=== PATIENT | male | born 1955 | race Caucasian/White ===

== ENCOUNTER 2018-01-12 10:14 | Emergency (ER) | payer BC ==
--- NOTE | 2018-01-12 12:29 | ED Physician Documentation ---
History of Present Illness - Stated complaint Stated Complaint: LEFT ARMPIT PX - Chief complaint Chief Complaint: Wound - Additonal information Additional information: hx from pt 62 male visiting locally hx enlarged noeds has L [place]illary b[place] - benign recently txed for asthma exac in another state now to ER here to large ST swelling under scar from prior biopsy L ant chest near axillae feels generally run down no fever his cough breathing is better no abd pain no ext injury Review of Systems Constitutional: reports: Fatigue. denies: Fever Cardiac: denies: Chest pain / pressure Respiratory: denies: Dyspnea, Cough Skin: reports: Other (STS). denies: Rash Endocrine: denies: Easy bruising / bleeding Immunocompromised: denies: Immunocompromised PD PAST MEDICAL HISTORY - Past Medical History Past Medical History: Yes Cardiovascular: Hypertension Respiratory: Asthma Psych: Depression, Anxiety - Past Surgical History Past Surgical History: Yes General: Cholecystectomy Ortho: Rotator cuff repair - Present Medications Home Medications: Ambulatory Orders Medication Instructions Recorded Confirmed Clindamycin [Cleocin] 300 mg PO Q6H 7 Days capsule 01/12/18 Lisinopril [Zestril] 1 tab PO DAILY 01/12/18 01/12/18 Mometasone/Formoterol [Dulera 200 1 inh PO BID 01/12/18 Mcg/5 Mcg Inhaler] Sertraline [Zoloft] 1 tab PO PRN 01/12/18 predniSONE [Prednisone] 1 tab PO DAILY 01/12/18 01/12/18 - Allergies Allergies/Adverse Reactions: Allergies Allergy/AdvReac Type Severity Reaction Status Date / Time Contrast dye AdvReac Unknown Uncoded 01/12/18 10:50 - Social History Does the pt smoke?: No Smoking Status: Never smoker Does the pt drink ETOH?: No Does the pt have substance abuse?: No - Immunizations Immunizations are current?: Yes PD ED PE NORMAL - Vitals Vital signs reviewed: Yes - Neck Neck: Supple, no meningeal sign - Cardiac Cardiac: RRR - Respiratory Respiratory: No respiratory distress, Clear bilaterally - Abdomen Abdomen: Soft, Non tender - Neuro Neuro: Alert and oriented X 3 - Free text exam Free text exam: few ant cervical possible L supraclavicular nodes, large STS mobile swelling ant upper lateral L chest under prior bx scar near axillae feels mobile and sup to pec mm, no erythema warmth drainage, no hand arm infection, no chest wall infection Results - Vitals Vitals: Vital Signs - 24 hr 01/12/18 01/12/18 01/12/18 10:35 13:16 16:11 Temperature 36.3 C L Heart Rate 98 85 98 Respiratory 16 16 18 Rate Blood Pressure 133/95 H 122/75 130/72 O2 Saturation 97 97 98 Oxygen O2 Source Room air - Labs Labs: Microbiology 01/12/18 15:46 Wound Culture - Preliminary Abscess Laboratory Tests 01/12/18 01/12/18 13:18 13:18 WBC 9.1 RBC 5.36 Hgb 14.8 Hct 45.3 MCV 84.5 MCH 27.7 MCHC 32.8 RDW 13.6 Plt Count 127 L MPV 8.8 Neut # (Auto) 6.6 Lymph # (Auto) 1.7 [place] # (Auto) 0.8 Eos # (Auto) 0.1 Baso # (Auto) 0.0 Absolute Nucleated RBC 0.00 Nucleated RBC % 0.0 Sodium 135 Potassium 4.0 Chloride 99 L Carbon Dioxide 28 Anion Gap 8.0 BUN 16 Creatinine 0.9 Estimated GFR (MDRD) 86 L Glucose 349 H Calcium 9.3 - Rads (name of study) CXR Radiology: See rad report (normal) ST sono Radiology: See rad report (5.5 X 3.5 X 3.1 cm lobulated avascular complex fluid collection vs solid mass - ddx abscess, seroma, meatoma, abn node) Procedures - Abscess I&D (location) L chest wall Preparation: Confirmed with ultrasound, Lidocaine 1%, With epi Incision: Incised with scalpel, Needle aspiration, Purulent drainage, Loculations broken, Irrigated, Packed, Culture obtained Other: Pt tolerated well, Dressing applied, Antibiotic prescribed PD MEDICAL DECISION MAKING - ED course ED course: CXR ne sono did not help narrow the ddx so incised the swelling, it was quite deep but yielded approx 40 ml of pus, packed and dressed, ab rx pt had no SOA and clear lungs after pt states elev blood sugar not new, being monitored, he is on steroids and had OJ and cherries earlier, will not start metformin ect today but advised pt of level - Sepsis Event Vital Signs: Vital Signs - 24 hr 01/12/18 01/12/1818 10:35 13:16 16:11 Temperature 36.3 C L Heart Rate 98 85 98 Respiratory 16 16 18 Rate Blood Pressure 133/95 H 122/75 130/72 O2 Saturation 97 97 98 Oxygen O2 Source Room air Departure - Departure Disposition: 01 Home, Self Care Clinical Impression: Abscess Condition: Good Instructions: ED Abscess IandD Prescriptions: Clindamycin [Cleocin] 300 mg PO Q6H 7 Days capsule Comments: The swelling was due to a very large and very deep abscess under your prior surgical scar We drained as much of the pus out as possible, packed the cavity with medicated gauze and put you on antibiotics to clear the infection. The antibiotic I picked is clindamycin - I picked that because it does not interact with your other medications. Please take a probiotic every day to prevent diarrhea You need to come back and see me Monday morning for a recheck and to change the dressing and packing If you are worse between now and Monday come back to the ER sooner Also your blood sugar was high today which may be due to the steroids you are one - but you may have diabetes and will need to follow up with your PMD after finishing the steroids Discharge Date/Time: 01/12/18 16:20
[2018-01-12 13:27] LABS: BASOPHILS % (AUTO) 0.4 %; EOSINOPHILS # (AUTO) 0.1 10^3/uL (0.0-0.7); EOSINOPHILS % (AUTO) 0.8 %; HGB - HEMOGLOBIN 14.8 g/dL (14.0-18.0); LYMPHOCYTES # (AUTO) 1.7 10^3/uL (1.5-3.5); LYMPHOCYTES % (AUTO) 18.7 %; MEAN CORPUSCULAR HEMOGLOBIN 27.7 pg (27.0-31.0); MEAN CORPUSCULAR HGB CONC 32.8 g/dL (32.0-36.0); MEAN CORPUSCULAR VOLUME 84.5 fL (80.0-94.0); MEAN PLATELET VOLUME 8.8 fL (7.4-11.4); MONOCYTES # (AUTO) 0.8 10^3/uL (0.0-1.0); MONOCYTES % (AUTO) 8.3 %; NEUTROPHILS # (AUTO) 6.6 10^3/uL (1.5-6.6); NEUTROPHILS % (AUTO) 71.8 %; PLT - PLATELET COUNT 127 10^3/uL (130-450); RED BLOOD COUNT 5.36 10^6/uL (4.70-6.10); RED CELL DISTRIBUTION WIDTH 13.6 % (12.0-15.0); WHITE BLOOD COUNT 9.1 x10^3/uL (4.8-10.8)
[2018-01-12 13:35] LABS: CALCIUM 9.3 mg/dL (8.5-10.3); CREATININE 0.9 mg/dL (0.6-1.2)
--- NOTE | 2018-01-12 15:01 | XRAY Report ---
Procedure Date: 01/12/2018 Accession Number: [id number] / [id number] Procedure: XR - Chest 1 View X-Ray CPT Code: 18899 FULL RESULT: EXAM: CHEST RADIOGRAPHY EXAM DATE: 01/12/2018 02:42 PM. CLINICAL HISTORY: Left axillary swelling and tenderness COMPARISON: None. TECHNIQUE: 1 view. FINDINGS: Lungs/Pleura: No focal opacities evident. No pleural effusion. No pneumothorax. Mediastinum: Within exam limitations, the cardiomediastinal contour is normal. Other: No acute skeletal abnormalities are appreciated. IMPRESSION: Grossly clear lungs. RADIA
--- NOTE | 2018-01-12 15:26 | Ultrasound Report ---
Procedure Date: 01/12/2018 Accession Number: [id number] / [id number] Procedure: US - Chest CPT Code: FULL RESULT: EXAM: Chest ultrasound DATE: 01/12/2018 2:40 PM CLINICAL HISTORY: large ST swelling anterior lateral left chest near the axilla at site of scar from prior lymph node excision. TECHNIQUE: Real time scanning by the product marketing manager with me present with saved static images reviewed. COMPARISON: None FINDINGS: Corresponding to the palpable abnormality is a 4.5 x 3.5 x 3.1 cm anechoic lobulated mass/collection with internal echoes without internal vascularity. There is increased through transmission. Minimal adjacent peripheral vascularity. No adjacent lymphadenopathy IMPRESSION: 4.5 x 3.5 x 3.1 cm lobulated avascular complex fluid collection versus solid mass left axilla. Consider abscess, seroma, hematoma, or abnormal lymph node.
[2018-01-12] MEDS ORDERED: CLINDAMYCIN 150 MG CAPSULE PO STA (16:01)
[2018-01-12 16:12] VITALS: BP 130/72
== END 2018-01-12 16:20 | disposition home or self-care (01) ==
LOC: ED 10:14
DX: L02.412 Cutaneous abscess of left axilla (principal); I10 Essential (primary) hypertension; J45.909 Unspecified asthma, uncomplicated
CPT/HCPCS: 10060; 36415; 71045; 76604; 80048; 85025; 87070; 87205; 99283; A9270

== ENCOUNTER 2018-01-14 08:06 | Emergency (ER) | payer BC ==
[2018-01-14] MEDS ORDERED: oxyCOD/ACETAMIN 5 MG/325 MG TABLET PO STA (08:58)
--- NOTE | 2018-01-14 09:05 | ED Physician Documentation ---
History of Present Illness - Stated complaint Stated Complaint: WOUND CHECK - Chief complaint Chief Complaint: Wound - Additonal information Additional information: hx from pt 62 male seen by me 48 hr ago had a veryularge very deep abscess left upper laterla chest wall I and D placed on clinda back for packing change wound check wound culture shows gram + and gram - no ID or sensitivity yet Review of Systems Constitutional: denies: Fever Skin: reports: Other (abscess) PD PAST MEDICAL HISTORY - Past Medical History Past Medical History: Yes Cardiovascular: Hypertension Respiratory: Asthma Psych: Depression, Anxiety - Past Surgical History Past Surgical History: Yes General: Cholecystectomy Ortho: Rotator cuff repair - Present Medications Home Medications: Ambulatory Orders Medication Instructions Recorded Confirmed Clindamycin [Cleocin] 300 mg PO Q6H 7 Days capsule 01/12/18 Lisinopril [Zestril] 1 tab PO DAILY 01/12/18 01/12/18 Mometasone/Formoterol [Dulera 200 1 inh PO BID 01/12/18 Mcg/5 Mcg Inhaler] Sertraline [Zoloft] 1 tab PO PRN 01/12/18 predniSONE [Prednisone] 1 tab PO DAILY 01/12/18 01/12/18 Oxycodone HCl/Acetaminophen 1 each PO Q6HR PRN #6 tablet 01/14/18 [Percocet 5-325 mg Tablet] - Allergies Allergies/Adverse Reactions: Allergies Allergy/AdvReac Type Severity Reaction Status Date / Time Contrast dye AdvReac Unknown Uncoded 01/14/18 08:22 - Social History Does the pt smoke?: No Smoking Status: Never smoker Does the pt drink ETOH?: No Does the pt have substance abuse?: No - Immunizations Immunizations are current?: Yes - POLST Patient has POLST: No PD ED PE NORMAL - Vitals Vital signs reviewed: Yes - Derm Derm: Other (no surrounding erythema, less swollen, after packng removed scant discharge) Results - Vitals Vitals: Vital Signs - 24 hr 01/14/18 08:10 Temperature 36.2 C L Heart Rate 97 Respiratory 18 Rate Blood Pressure 127/90 H O2 Saturation 95 Oxygen O2 Source Room air PD MEDICAL DECISION MAKING - ED course ED course: old packing removed repacked pt ronny well will dc'he is tavelling and will need to having packing removed in 3 days confirmed he gave us an accurate phone for cx results - Sepsis Event Vital Signs: Vital Signs - 24 hr 01/14/18 08:10 Temperature 36.2 C L Heart Rate 97 Respiratory 18 Rate Blood Pressure 127/90 H O2 Saturation 95 Oxygen O2 Source Room air Departure - Departure Disposition: 01 Home, Self Care Clinical Impression: Abscess Condition: Good Instructions: ED Abscess IandD Prescriptions: Oxycodone HCl/Acetaminophen [Percocet 5-325 mg Tablet] 1 each PO Q6HR PRN #6 tablet PRN Reason: Severe Pain Comments: Continue the antibiotics. The wound should be checked and possibly repacked in 3 days If you cannot get to emedical care while travelling may pull the packing out yourself in 3 days You can call the ER for culture results - probably tomorrow [phone]
[2018-01-14 10:48] VITALS: BP 125/88
== END 2018-01-14 09:36 | disposition home or self-care (01) ==
LOC: ED 08:06
DX: L02.213 Cutaneous abscess of chest wall (principal); I10 Essential (primary) hypertension
CPT/HCPCS: 10060; 99283; A9270